=== PATIENT | female | born 1990 ===

== ENCOUNTER 2018-07-12 15:56 | Emergency (ER) | payer OTHER ==
[2018-07-12 16:02] VITALS: PULSE 72
--- NOTE | 2018-07-12 16:24 | ED PDOC ---
HPI: Abdomen Time Seen by Provider: 07/12/18 16:23 Chief Complaint (Nursing): Female Genitourinary Chief Complaint (Provider): abdominal pain History Per: Patient Additional Complaint(s): 28-year-old female presents with right-sided pelvic pain ongoing for about 2 years intermittently. Patient states pain is worsened in the past couple of months prompting ED visit today. Patient states in the past month she has had abnormal spotting in between her periods. She takes control pill daily and admits to being compliant with this med. At present patient denies any active bleeding or vaginal discharge. She rates pain as a 4 out of 10. Patient has not taken any medicine for pain relief. Patient denies concern for STD. PMD: [facility] Past Medical History Reviewed: Historical Data, Nursing Documentation, Vital Signs Vital Signs: Last Vital Signs Temp 97.9 F 07/12/18 16:00 Pulse 72 07/12/18 16:00 Resp 16 07/12/18 16:00 BP 132/90 07/12/18 16:00 Pulse Ox 99 07/12/18 16:00 - Medical History PMH: No Chronic Diseases - Surgical History Surgical History: No Surg Hx - Family History Family History: States: No Known Family Hx - Living Arrangements Living Arrangements: With Family - Social History Current smoker - smoking cessation education provided: No Alcohol: None Drugs: Denies - Allergies Allergies/Adverse Reactions: Allergies Allergy/AdvReac Type Severity Reaction Status Date / Time mushroom Allergy SWELLING Uncoded 07/12/18 16:00 Review of Systems ROS Statement: Except As Marked, All Systems Reviewed And Found Negative Constitutional: Negative for: Fever Respiratory: Negative for: Cough Gastrointestinal: Positive for: Abdominal Pain. Negative for: Nausea, Vomiting, Diarrhea Genitourinary Female: Positive for: Pelvic Pain. Negative for: Dysuria, Frequency, Incontinence, Hematuria, Vaginal Discharge, Vaginal Bleeding, Rash Physical Exam - Reviewed Nursing Documentation Reviewed: Yes Vital Signs Reviewed: Yes - Physical Exam Appears: Positive for: Well, Non-toxic, No Acute Distress Skin: Positive for: Normal Color. Negative for: Rash Eye Exam: Positive for: Normal appearance Cardiovascular/Chest: Positive for: Regular Rate, Rhythm Respiratory: Positive for: Normal Breath Sounds. Negative for: Wheezing, Respiratory Distress Gastrointestinal/Abdominal: Positive for: Soft, Tenderness (mild to RLQ). Negative for: Distended, Guarding, Rebound Pelvic Exam: Positive for: Tender Adnexa (right, slight) Back: Negative for: L CVA Tenderness, R CVA Tenderness Extremity: Positive for: Normal ROM Neurologic/Psych: Positive for: Alert, Oriented - Laboratory Results Result Diagrams: 07/12/18 17:30 07/12/18 17:30 Urine POC: Negative Urine dip results: Negative for: Leukocyte Esterase, Blood, Nitrate, Ketones, Glucose, Bilirubin, Protein - ECG O2 Sat by Pulse Oximetry: 99 Pulse Ox Interpretation: Normal - Other Rad TV US X-Ray: Read By Radiologist X-Ray Interpretation: see below Medical Decision Making Medical Decision Makin28 y/o with pelvic pain Plan: Urine dip Urine test CHL/GC culture UA Urine culture TV US PO motrin US: HISTORY: right adnexal pain, r/o torsion, cyst, mass COMPARISON: None available. TECHNIQUE: Transvaginal pelvic ultrasound FINDINGS: UTERUS: Measures 7.7 x 3.8 x 4.2 cm. Anteverted. 1.1 x 1.0 x 1.1 cm heterogeneous hypodense mass, likely posterior submucosal fibroid. ENDOMETRIUM: Measures 7 mm in diameter. CERVIX: No cervical abnormality identified. RIGHT OVARY: Measures 3.3 x 1.9 x 2.7 cm. Blood flow is demonstrated. LEFT OVARY: Measures 2.0 x 1.5 x 2.1 cm. Blood flow is demonstrated. FREE FLUID: No significant free fluid noted. OTHER FINDINGS: None. IMPRESSION: Probable uterine fibroid as above. Patient is aware of all diagnostic testing results, all questions answered. Patient states that she feels better after Motrin dose was given. Patient given copy of ultrasound report and was advised to follow-up with [facility]. Disposition - Clinical Impression Clinical Impression: Uterine fibroid - Patient ED Disposition Is Patient to be Admitted: No Counseled Patient/Family Regarding: Studies Performed, Diagnosis, Need For Followup - Disposition [facility] Disposition: Routine/Home Disposition Time: 18:06 Condition: STABLE Additional Instructions: Take 3 Advil every 6 hours as needed for pain. Follow up as soon as possible with clinic. Instructions: Uterine Fibroids Forms: [employer] (Austrian)
--- NOTE | 2018-07-12 17:32 | US ---
Date of service: 07/12/2018 HISTORY: right adnexal pain, r/o torsion, cyst, mass COMPARISON: None available. TECHNIQUE: Transvaginal pelvic ultrasound FINDINGS: UTERUS: Measures 7.7 x 3.8 x 4.2 cm. Anteverted. 1.1 x 1.0 x 1.1 cm heterogeneous hypodense mass, likely posterior submucosal fibroid. ENDOMETRIUM: Measures 7 mm in diameter. CERVIX: No cervical abnormality identified. RIGHT OVARY: Measures 3.3 x 1.9 x 2.7 cm. Blood flow is demonstrated. LEFT OVARY: Measures 2.0 x 1.5 x 2.1 cm. Blood flow is demonstrated. FREE FLUID: No significant free fluid noted. OTHER FINDINGS: None. IMPRESSION: Probable uterine fibroid as above.
[2018-07-12 17:40] LABS: BASO # 0.1 K/uL (0.0-0.2); BASO % 1.2 % (0.0-2.0); EOS # 0.1 K/uL (0.0-0.7); EOS % 1.4 % (0.0-4.0); HEMOGLOBIN 12.4 g/dL (12.0-16.0); LYMPH # 2.2 K/uL (1.0-4.3); LYMPH % 24.3 % (20.0-40.0); MEAN CELL VOLUME 89.7 fl (81.0-99.0); MEAN CORPUSCULAR HEMOGLOBIN 29.9 pg (27.0-31.0); MEAN CORPUSCULAR HGB CONC 33.3 g/dL (33.0-37.0); MEAN PLATELET VOLUME 7.9 fl (7.2-11.7); MONO # 0.8 K/uL (0.0-0.8); MONO % 8.5 % (0.0-10.0); NEUT # 5.9 K/uL (1.8-7.0); NEUT % 64.6 % (50.0-75.0); NRBC % 0.1 % (0.0-0.0); RBC 4.13 Mil/uL (3.80-5.20); RED CELL DISTRIBUTION WIDTH 13.7 % (11.5-14.5); WHITE BLOOD COUNT 9.1 K/uL (4.8-10.8)
[2018-07-12 17:46] LABS: ALB/GLOB RATIO 1.2 (1.0-2.1); ALBUMIN 4.3 g/dL (3.5-5.0); ALT/SGPT 39 U/L (9-52); AST/SGOT 29 U/L (14-36); BLOOD UREA NITROGEN 9 mg/dl (7-17); CALCIUM 9.3 mg/dL (8.4-10.2); GFR NON-AFRICAN AMERICAN > 60
[2018-07-12 17:58] LABS: SQUAMOUS EPITHIAL 5 /hpf (0-5); URINE BILIRUBIN NEGATIVE (NEGATIVE); URINE BLOOD SMALL (NEGATIVE); URINE CLARITY SLIGHTY-CLOUDY (Clear); URINE COLOR YELLOW (YELLOW); URINE GLUCOSE (UA) NEG (Normal); URINE LEUKOCYTE ESTERASE NEG Leu/uL (Negative); URINE PROTEIN NEGATIVE (NEGATIVE); URINE UROBILINOGEN 0.2-1.0 mg/dL (0.2-1.0)
[2018-07-12 18:35] LABS: URINE BACTERIA FEW (<OCC)
[2018-07-12 19:09] VITALS: BP 123/64; RESP 17; TEMP 98; O2SAT 100
== END 2018-07-12 18:30 | disposition home or self-care (01) ==
LOC: H.ER 15:56
DX: D25.9 Leiomyoma of uterus, unspecified (principal)

== ENCOUNTER 2018-11-10 10:03 | Emergency (ER) | payer OTHER ==
[2018-11-10 10:09] VITALS: BMI 36.3
--- NOTE | 2018-11-10 10:30 | ED PDOC ---
Upper Extremity Pain/Injury Time Seen by Provider: 11/10/18 10:10 Chief Complaint (Nursing): Upper Extremity Problem/Injury Chief Complaint (Provider): Upper Extremity Problem/Injury History Per: Patient History/Exam Limitations: no limitations Onset/Duration Of Symptoms: Days (x3) Current Symptoms Are (Timing): Still Present Additional Complaint(s): 28 y/o female with no significant PMHx presents to the ED for evaluation of right sided neck pain with radiation to the right shoulder, onset three days ago. Patient does not recall any injury. Patient states pain worsens with turning of the head to either side. Otherwise, patient denies weakness, paresthesias and fever. PMD: [place] Past Medical History Reviewed: Historical Data, Nursing Documentation, Vital Signs Vital Signs: Last Vital Signs Temp 97.9 F 11/10/18 10:10 Pulse 65 11/10/18 10:10 Resp 20 11/10/18 10:10 BP 116/69 11/10/18 10:10 Pulse Ox 99 11/10/18 10:10 - Medical History PMH: No Chronic Diseases - Surgical History Surgical History: No Surg Hx - Family History Family History: States: Unknown Family Hx - Social History Current smoker - smoking cessation education provided: No Alcohol: None Drugs: Denies - Home Medications Home Medications: Ambulatory Orders Medication Instructions Recorded Cyclobenzaprine [Cyclobenzaprine 10 mg PO TID #10 tab 11/10/18 HCl] Naproxen [Naprosyn] 500 mg PO Q12H #20 tab 11/10/18 - Allergies Allergies/Adverse Reactions: Allergies Allergy/AdvReac Type Severity Reaction Status Date / Time mushroom Allergy SWELLING Uncoded 07/12/18 16:00 Review of Systems ROS Statement: Except As Marked, All Systems Reviewed And Found Negative Musculoskeletal: Positive for: Neck Pain, Shoulder Pain Neurological: Negative for: Weakness Physical Exam - Reviewed Nursing Documentation Reviewed: Yes Vital Signs Reviewed: Yes - Physical Exam Appears: Positive for: No Acute Distress Head Exam: Positive for: ATRAUMATIC, NORMOCEPHALIC Skin: Positive for: Normal Color, Warm, Dry Eye Exam: Positive for: Normal appearance, EOMI, PERRL Neck: Negative for: Normal (Right Paracervical spasm and tenderness. No midline spinal tenderness) Cardiovascular/Chest: Positive for: Regular Rate, Rhythm. Negative for: Murmur Respiratory: Positive for: Normal Breath Sounds. Negative for: Respiratory Distress Gastrointestinal/Abdominal: Positive for: Normal Exam, Soft. Negative for: Tenderness Extremity: Positive for: Normal ROM. Negative for: Deformity Neurological/Psych: Positive for: Awake, Alert, Oriented - ECG O2 Sat by Pulse Oximetry: 99 (RA) Pulse Ox Interpretation: Normal Medical Decision Making Medical Decision Making: Time: 1022 A/P: Rule out cervical radiculopathy -- Will obtain XRs and give toradol -- Toradol 30 mg IM -- Cervical Spine AP & Lateral XR Scribe Attestation: Documented by Katie Rosario, acting as a scribe Shona Dang MD. Provider Scribe Attestation: All medical record entries made by the Scribe were at my direction and personally dictated by me. I have reviewed the chart and agree that the record accurately reflects my personal performance of the history, physical exam, medical decision making, and the department course for this patient. I have also personally directed, reviewed, and agree with the discharge instructions and disposition. Disposition - Clinical Impression Clinical Impression: Cervical radiculopathy - Patient ED Disposition Is Patient to be Admitted: No Counseled Patient/Family Regarding: Studies Performed, Diagnosis, Need For Followup, Rx Given - Disposition Referrals: [facility] [Outside] Disposition: Routine/Home Disposition Time: 10:38 Condition: FAIR Prescriptions: Cyclobenzaprine [Cyclobenzaprine HCl] 10 mg PO TID #10 tab Naproxen [Naprosyn] 500 mg PO Q12H #20 tab Instructions: Radiculopathy Forms: [employer] (Thai)
--- NOTE | 2018-11-10 12:04 | RAD ---
Date of service: 11/10/2018 PROCEDURE: Cervical Spine Radiographs. HISTORY: Pain. COMPARISON: None available. FINDINGS: BONES: Alignment maintained. No fracture. Dens Intact. On the lateral view there is adequate visualization to the C6 vertebral body level. C7 is partially obscured by the overlying shoulders. C1-C2 articulation is unremarkable without abnormal widening. Posterior elements are intact. No jumped facets are seen. DISC SPACES: No significant disc space narrowing is seen. SOFT TISSUES: Normal. No prevertebral soft tissue swelling. OTHER FINDINGS: None. IMPRESSION: Unremarkable x-ray of the cervical spine.
[2018-11-10 12:08] VITALS: BP 129/70; PULSE 70; RESP 17; TEMP 98; O2SAT 100
== END 2018-11-10 12:07 | disposition home or self-care (01) ==
LOC: H.ER 10:03
DX: M54.12 Radiculopathy, cervical region (principal)
CPT/HCPCS: 72040; 81025; 96372; 99283; J1885